=== PATIENT | female | born 1955 | race Caucasian/White ===

== ENCOUNTER 2025-08-18 20:47 | Emergency (ER) | payer MEDICARE, OTHER, SELFPAY ==
[2025-08-18 20:50] VITALS: BP 161/71
[2025-08-18 21:11] VITALS: BMI 26.5
--- NOTE | 2025-08-18 21:11 | ED.GENMED ---
History of Present Illness
General
Chief Complaint: DVT/Possible Blood Clot
Source: patient and family
Time Seen by Provider: 08/18/25 21:00
History of Present Illness
History of Present Illness:
70-year-old female with past medical history of CAD status post previous cardiac stent, insulin-dependent diabetes, previous breast cancer presenting to the emergency department for evaluation after experiencing right lower extremity heaviness and
edema over the last couple of weeks, recent travel to [facility] and [facility] in the last 2 months, returned home from [facility] yesterday and decided to come to the ER today because of increased pain and swelling. No trauma to the affected area,
no focal weakness or numbness, no color changes, able to fully range of motion the right lower extremity without much difficulty. No history of DVT. No cigarette or tobacco use. Patient does take an 81 mg aspirin due to her history of CAD
Past History
Past History
ED Past Medical History: CAD, Cancer, Hypercholesterolemia, IDDM, Hypothyroidism and Psychiatric
ED Past Surgical History: Appendectomy, Cardiac and Other
Social History
Tobacco: Non-smoker
Alcohol: None
Drug: None
Personal:
Living: with family
Review of Systems
Review of Systems
All Other Systems: ROS reviewed and negative except as documented in HPI and ROS
Phy Exam
Physical Exam
Physical Exam:
GENERAL: Alert , in no apparent distress
HEAD: Normocephalic atraumatic
EYE: conjunctiva clear
NECK: Supple
ENT: o/p clr, mmm.
CARDIAC: Regular rate and rhythm
LUNGS: Clear breath sounds bilaterally, no acute respiratory distress, no wheezes/rales/rhonchi
NEUROLOGICAL: Alert and oriented
SKIN: Warm and dry, skin intact.
MUSCULOSKELETAL: Notable right lower extremity edema from the distal third of the tibia towards the foot, nonpitting. Easily palpable pedal and tibial pulse. Cap refill less than 2 seconds. Sensation grossly intact to light touch. FROM
PSYCH: Normal and appropriate interaction.
Scores
Heart Failure Risk
Heart Failure Risk Score: Not Applicable
Heart Score for Chest Pain Patients
STEMI patient?: Not applicable
Withdrawal Assessment of Alcohol
Withdrawal Assessment Completed?: Not applicable
Course
Orders/Labs/Results
Orders:
Orders
08/18/25 21:01
US Periph Venous LOWER Ext RT Urgent
Comment:
Reason For Exam: edema, recent travel
Vital Signs
Initial and Last Documented VS:
Initial Vital Signs
Temp Pulse Resp BP Pulse Ox
98.1 F 74 16 161/71 98
08/18/25 20:50 08/18/25 20:50 08/18/25 20:50 08/18/25 20:50 08/18/25 20:50
Last Documented Vital Signs
Temp Pulse Resp BP Pulse Ox
98.1 F 71 16 158/71 98
08/18/25 20:50 08/18/25 21:15 08/18/25 20:50 08/18/25 21:15 08/18/25 21:17
MDM/Problems Addressed
Differential Diagnosis Includes:
DVT
Venous insufficiency
PAD
Cellulitis
No concern for fracture given no trauma
Gout
OA
MDM/Problems Addressed:
70-year-old female presenting with nontraumatic right lower extremity edema and discomfort, symptoms ongoing and progressively worsening. She did have recent prolonged travel to 2 separate countries with greater than 10-hour flight times. Also a
history of breast cancer. Takes daily 81 mg aspirin. Will obtain ultrasound to rule out DVT. Patient does have an appointment with her primary care provider already scheduled for this coming Friday for follow-up.
*Radiology
Radiology exam reviewed: radiology read reviewed
*Pulse Oximetry
SaO2: 98
Oxygen Mode of Delivery: Room air
Patient hypoxic: no
*Critical Care Note
Total Time (30-74mins, 75-104mins- exclusive of procedures): Not Applicable
Patient Management
Escalation/DeEscalation of care consider admission/obs:
US negative for DVT. Patient to follow up with PCP on Friday. Aware of return precautions to the ER
ED Attending Note
-
Portions of this chart may have been created with voice recognition software.� Occasional wrong word or��sound alike� substitutions may have occurred due to the inherent limitations of voice recognition software.
Discharge Plan
Departure
Patient Disposition: Home (Routine Discharge)
Date of Disposition: 08/18/25
Time of Disposition: 21:41
Patient with high blood pressure during this ER visit?: Yes
Discharge Problem:
Edema
Instructions: Swelling
Interventions
Interventions:
*Risk Screen - Suicide Last Done: 08/18/25 20:53
*General Assessment Last Done: 08/18/25 20:53
*Neglect/Abuse Screening Last Done: 08/18/25 20:53
*ED- Fall Risk Assessment Last Done: 08/18/25 20:53
*ED COVID-19 Vaccine History Last Done: 08/18/25 20:53
*ED Influenza Vaccine History Last Done: 08/18/25 20:53
ED- Cardiac Assessment Last Done: 08/18/25 21:13
ED- Pulmonary Assessment Last Done: 08/18/25 21:13
ED-Peripheral Vascular Assessment Last Done: 08/18/25 21:13
ED-Skin Assessment Last Done: 08/18/25 21:13
Discharge Date and Time
Print Language: [place]
[2025-08-18 21:15] VITALS: BP 158/71
== END 2025-08-18 21:45 | disposition home or self-care (01) ==
LOC: EMR 20:47
PROVIDERS: EMERGENCY PHYSICIAN Emergency Medicine
DX: R60.0 Localized edema (principal); E03.9 Hypothyroidism, unspecified; E11.9 Type 2 diabetes mellitus without complications; E78.00 Pure hypercholesterolemia, unspecified; I25.10 Atherosclerotic heart disease of native coronary artery without angina pectoris; Z79.82 Long term (current) use of aspirin; Z85.3 Personal history of malignant neoplasm of breast; Z95.5 Presence of coronary angioplasty implant and graft; Z90.49 Acquired absence of other specified parts of digestive tract
CPT/HCPCS: 99284; 93971